=== PATIENT | female | born 1970 | race Hispanic/Latino ===

== ENCOUNTER → 2018-02-08 | Day surgery (SDC) | payer OTHER ==
[2018-02-07 10:37] LABS: BASOPHILS % 0.6 % (0.0-1.0); EOSINOPHILS # (AUTO) 0.6 (0.0-0.4); EOSINOPHILS % 8.9 % (0.0-6.0); HEMATOCRIT 44.4 % (34.2-44.1); HEMOGLOBIN 15.3 g/dL (12.0-16.0); LYMPHOCYTES # (AUTO) 2.7 (1.0-3.2); LYMPHOCYTES % 38.2 % (18.0-39.1); MEAN CORPUSCULAR HEMOGLOBIN 33.6 pg (28-32); MEAN CORPUSCULAR HGB CONC 34.5 g/dL (31-35); MEAN CORPUSCULAR VOLUME 97.6 fL (81-99); MONOCYTES # (AUTO) 0.6 (0.2-0.8); MONOCYTES % 8.5 % (4.4-11.3); NEUTROPHILS # (AUTO) 3.1 (2.1-6.9); NEUTROPHILS % 43.5 % (38.7-80.0); PLATELET COUNT 351 x10e3/uL (140-360); RED BLOOD COUNT 4.55 x10e6/uL (3.6-5.1)
--- NOTE | 2018-02-07 10:48 | Diagnostic Imaging Report ---
PROCEDURE:CHEST 2 VIEWS TECHNIQUE:PA and lateral chest INDICATION:Preoperative evaluation for foot surgery COMPARISON:None. FINDINGS: Lungs are clear and symmetrically inflated. No pleural effusions. Normal heart size, mediastinal contour, and pulmonary vasculature. Normal skeleton. Bilateral breast augmentation. CONCLUSION: Normal. Dictated by: Ruben Richmond M.D. on 02/07/2018 at 10:49 Electronically approved by: Ruben Richmond M.D. on 02/07/2018 at 10:49
[~2018-02-08] MED LIST: ALL DAY ALLERGY10 MG PO; BUPIVACAINE HCL 0.5% INJ 30 ML VIAL INJ ONE; CEFAZOLIN SOD 1 GM VIAL ONE; DEXAMETHASONE SOD PHOS INJ 4 MG/ML VIAL ONE; FENTANYL CITRATE/PF 100MCG/2 ML INJ ONE; KETOROLAC TROMETHAMINE 30 MG/ML VIAL ONE; LIDOCAINE HCL 2% LOCAL INJ 5 ML SDV VIAL INJ ONE; MIDAZOLAM HCL 2 MG/2 ML VIAL ONE; MUPIROCIN 2% OINT 22 GM TUBE ONE; ONDANSETRON HCL INJ 2 MG/ML VIAL ONE; PROPOFOL IV EMULSION 10 MG/ML 20 ML VIAL ONE; SEVOFLURANE INHAL SOLN 250 ML PEN BTL ONE
--- OUTSIDE RECORDS SUMMARY | 2018-02-08 05:11 | XMS REPORT ---
[facility] Address Unknown Phone Unavailable Care Team Providers Care Broach Setter Name Role Phone CLARKE LOVE Unavailable Unavailable Problems This patient has no known problems. Allergies, Adverse Reactions, Alerts This patient has no known allergies or adverse reactions. Medications This patient has no known medications. Results Test Description Test Time Test Comments Text Results Atomic Results Result Comments CHEST 2 VIEWS [place] [id number] Patient Name: RADHA DOTSON MR #: [id number] : 1970 Age/Sex: 47/F Req # : [id number] Adm Physician: Ordered by: CLARKE LOVE DPM Report # : [id number] Location: OR Room/Bed: Procedure: [id number] DX/CHEST 2 VIEWS Exam Date: 02/07/18 Exam Time : 1110 REPORT STATUS: Signed PROCEDURE: CHEST 2 VIEWS TECHNIQUE: PA and lateral chest INDICATION: Preoperative evaluation for foot surgery COMPARISON: None. FINDINGS: Lungs are clear and symmetrically inflated. No pleural effusions. Normal heart size, mediastinal contour, and pulmonary vasculature. Normal skeleton. Bilateral breast augmentation. CONCLUSION: Normal. Dictated by: Luis E Richmond M.D. on 02/07/2018 at 10:49 Electronically approved by: Luis E Richmond M.D. on 02/07/2018 at 10:49 Dictated By: LUIS E RICHMOND MD [id number] Transcribed By: MERCEDES on 02/07/18 1049 COPY TO: CLARKE LOVE DPM
--- NOTE | 2018-02-08 08:54 | Operative Report ---
DATE OF PROCEDURE: February 08, 2018 PREOPERATIVE DIAGNOSIS: Right hallux valgus. POSTOPERATIVE DIAGNOSIS: Right hallux valgus. PLANNED PROCEDURE: Right Finn bunionectomy with 1st metatarsal osteotomy and internal fixation, right foot. COOK HELPER JUICE: Brennan Catalan DPM ANESTHESIA: General with a postoperative block consisting of 15 mL of 0.5% Marcaine plain mixed with 1 mL of dexamethasone phosphate. HEMOSTASIS: Pneumatic thigh tourniquet set at 350 mmHg for a total time of 28 minutes. MATERIALS: Two 2.0 mm x 12 mm screws, 2-0 Vicryl, 3-0 Vicryl, 4-0 Monocryl. ESTIMATED BLOOD LOSS: Less than 10 mL. PATHOLOGY: None. DETAILS OF PROCEDURE: The patient was seen in the preoperative waiting room where the correct procedure and site were identified. The patient was brought into the operating room and placed on the operating table in the supine position. General anesthesia was initiated at this time. A well-padded pneumatic tourniquet was placed about the patient's right thigh. The right foot, ankle and leg were then scrubbed, prepped and draped in the usual aseptic manner. The right foot, ankle and leg were exsanguinated with an Esmarch bandage, and a pneumatic thigh tourniquet was inflated to 350 mmHg for a total time of approximately 29 minutes. Attention was directed the dorsomedial aspect the patient's right foot where a 5 cm curvilinear incision was made directly over the 1st metatarsophalangeal joint. The incision was carried through the subcutaneous tissues, them from deeper underlying structures. All vital neurovascular structures were identified and retracted medially and laterally. All bleeders were cauterized or ligated as deemed necessary. At this time, attention was directed to the 1st interspace where, through the same incision, a deep transverse metatarsal ligament was transected along with the fibular sesamoid ligament as well as the capsular sesamoid ligament. The hallux was then put through a range of motion and found to be functioning in a more proper anatomic alignment. Attention was directed back to the 1st metatarsophalangeal joint where an inverted-L capsulotomy was performed to allow for good visualization of the medial aspect of the 1st metatarsal head. Utilizing a sagittal saw, the medial eminence was resected and passed off to the back table. Next a rybwal-ho-oetastl chevron osteotomy was performed of the 1st metatarsal. The capital fragment was then transposed laterally approximately 3 to 4 mm and impacted onto the shaft of the metatarsal. This was temporarily fixated with a K-wire and permanently fixed utilizing two 2.0-mm cortical bone screws utilizing techniques of AO fixation. Both screws measured 12 mm. Fixation site is stable. The wound was then flushed with copious amounts of sterile saline. Capsule and deep tissue were reapproximated with 2-0 Vicryl and subcutaneous tissue with 3-0 Vicryl, and the skin was closed utilizing a running subcuticular stitch of 4-0 Monocryl. Next, Mastisol was applied to the incision site followed by 1/4-inch Steri-Strips. The dressings were applied including Adaptic, 4 x 4's, Kerlix, Daniele wrap and a postop shoe. The patient tolerated the procedure and the anesthesia well. Patient was transferred to the postoperative recovery unit with vital signs stable and vascular status intact. The patient was monitored there for a short period of time before being sent home with the following written and oral instructions: 1. Keep the dressing clean, dry and intact. 2. The patient is to remain partial weightbearing with crutches and a postop shoe to avoid excessive ambulation until being seen in the office. 3. Patient was given the office number and instructed to contact us if any problems should arise. Job#: [id number]
== END | disposition home or self-care (01) ==
LOC: OR 05:09 → EDBD 07:00
PROVIDERS: ATTEND Podiatrist Foot & Ankle Surgery
DX: M20.11 Hallux valgus (acquired), right foot (principal); F17.210 Nicotine dependence, cigarettes, uncomplicated; Z01.810 Encounter for preprocedural cardiovascular examination; Z01.812 Encounter for preprocedural laboratory examination; Z01.818 Encounter for other preprocedural examination
CPT/HCPCS: 28296; 36415; 71046; 85025; 93005; C1713; J0690; J1100; J1885; J2001; J2250; J2405